=== PATIENT | female | born 1945 | race Caucasian/White ===

== ENCOUNTER 2024-08-13 21:01 | Emergency (ER) | payer MEDICARE, OTHER ==
[~2024-08-13] VITALS: Ht 160 cm; Wt 52.2 kg
[2024-08-14 01:22] VITALS: BP 112/56; TEMP 98; O2SAT 98
== END 2024-08-14 01:22 | disposition home or self-care (01) ==
LOC: ER 21:07
DX: S09.8XXA Other specified injuries of head, initial encounter (principal); F03.90 Unspecified dementia, unspecified severity, without behavioral disturbance, psychotic disturbance, mood disturbance, and anxiety; I10 Essential (primary) hypertension; E78.5 Hyperlipidemia, unspecified; W01.0XXA Fall on same level from slipping, tripping and stumbling without subsequent striking against object, initial encounter; Y93.89 Activity, other specified; Y92.89 Other specified places as the place of occurrence of the external cause; Y99.8 Other external cause status
CPT/HCPCS: 70450-TC; 72125-TC